=== PATIENT | male | born 1960 ===

== ENCOUNTER 2018-03-30 02:39 | Emergency (ER) | payer MEDICAID ==
[2018-03-30 02:54] VITALS: BP 137/87; PULSE 70; TEMP 98.1; O2SAT 97
--- NOTE | 2018-03-30 03:17 | C.PDOC ---
History Of Present Illness 57 year old male presents to the ER with a complaint of bleeding to the roof of his mouth after eating a dry piece of toast [employer]IN[employer]. Patient states the bleeding concerned him prompting him to call 911, bleeding subsided on arrival. Denies weakness or numbness. Time Seen by Provider: 03/30/18 03:00 Chief Complaint (Nursing): Dental Pain History Per: Patient History/Exam Limitations: no limitations Onset/Duration Of Symptoms: Hrs Current Symptoms Are (Timing): Still Present Recent travel outside of the [place]: No Past Medical History Reviewed: Historical Data, Nursing Documentation, Vital Signs Vital Signs: Last Vital Signs Temp 98.1 F 03/30/18 02:49 Pulse 70 03/30/18 02:49 Resp 20 03/30/18 02:49 BP 137/87 03/30/18 02:49 Pulse Ox 97 03/30/18 02:49 - Medical History PMH: HTN, Hypercholesterolemia, Hypothyroidism Family History: States: Unknown Family Hx - Social History Hx Alcohol Use: No Hx Substance Use: No - Immunization History Hx Tetanus Toxoid Vaccination: No Hx Influenza Vaccination: No Hx Pneumococcal Vaccination: No Review Of Systems ENT: Positive for: Other (Bleeding from roof of mouth) Neurological: Negative for: Weakness, Numbness Physical Exam - Physical Exam Appears: Non-toxic Skin: Normal Color, Warm, Dry Head: Atraumatic, Normacephalic Eye(s): bilateral: Normal Inspection Oral Mucosa: Moist, Other (Superficial abrasion to right side of hard palate. No laceration or open wound, no active bleeding.) Tongue: Normal Appearing, No Laceration, No Bleeding Lips: Normal Appearing, No Abrasion, No Laceration Teeth: Normal Dentition, No Tender To Palpation, No Loose, No Avulsed Gingiva: Normal Appearing, No Bleeding Neck: Normal, No Midline Cervical Tenderness, No Paracervical Tenderness, Supple Neurological/Psych: Oriented x3, Normal Speech ED Course And Treatment O2 Sat by Pulse Oximetry: 97 (Room air) Pulse Ox Interpretation: Normal Progress Note: Patient is resting comfortably in the ER in no acute distress, vitals are stable, patient reassured, will discharge home with instructions to follow up with PMD. Disposition Counseled Patient/Family Regarding: Diagnosis, Need For Followup - Disposition Disposition: HOME/ ROUTINE Disposition Time: 03:15 Condition: STABLE Additional Instructions: Gargle with cold water / or little bit of iced water to prevent bleeding Return to ER if worse Forms: [facility] (Albanian), General Discharge Instructions - Clinical Impression Clinical Impression: Abrasion of oral cavity, initial encounter - PA / PRESS OPERATOR ASSISTANT / Resident Statement MD/DO has reviewed & agrees with the documentation as recorded. - Scribe Statement The provider has reviewed the documentation as recorded by the Scribe Jorge Hawthorne All medical record entries made by the Roryibe were at my direction and personally dictated by me. I have reviewed the chart and agree that the record accurately reflects my personal performance of the history, physical exam, medical decision making, and the department course for this patient. I have also personally directed, reviewed, and agree with the discharge instructions and disposition.
[2018-03-30 03:24] VITALS: RESP 14
== END 2018-03-30 03:48 | disposition home or self-care (01) ==
LOC: C.ER 02:39
DX: S00.512A Abrasion of oral cavity, initial encounter (principal); X58.XXXA Exposure to other specified factors, initial encounter